=== PATIENT | female | born 1995 | race Two or more races ===

== ENCOUNTER 2017-10-21 17:47 | Emergency (ER) | payer SELFPAY ==
[2017-10-21 18:27] VITALS: BP 107/57
--- NOTE | 2017-10-21 20:18 | RADIOLOGY REPORT (SQ) ---
EXAM DESCRIPTION: TOE RIGHT COMPLETED DATE/TIME: 10/21/2017 8:07 pm REASON FOR STUDY: toe injury, gate fell on COMPARISON: None. NUMBER OF VIEWS: Three views. TECHNIQUE: AP, lateral, and oblique images acquired of the right first toe. LIMITATIONS: None. FINDINGS: MINERALIZATION: Normal. BONES: Nondisplaced transverse fracture of the distal phalanx. JOINTS: No effusions. SOFT TISSUES: No soft tissue swelling. No foreign body. OTHER: No other significant finding. IMPRESSION: NONDISPLACED TRANSVERSE FRACTURE OF THE DISTAL PHALANX OF THE 1ST TOE. COMMENT: SITE OF TRAUMA/COMPLAINT MARKED/STAMP COMPLETED: YES. TECHNICAL DOCUMENTATION: JOB ID: [id number] [employer]- All Rights Reserved Reading location - IP/workstation name: [email or web address]
[2017-10-21] MEDS ORDERED: LIDOCAINE 1% INJ-PF (10 MG/ML) 30 ML SDV INJ ONE (20:27)
--- NOTE | 2017-10-21 23:13 | ER Document Report ---
ED Extremity Problem, Lower - General Chief Complaint: Toe Injury Stated Complaint: TOE INJURY Time Seen by Provider: 10/21/17 19:21 Mode of Arrival: Ambulatory Information source: Patient Notes: Patient is a 22-year-old female who presents to the ER today for injury to the right great toe after out of our last night having heavy gait fall on it. Patient states that she was drunk so she went home and went to sleep. This happened approximately 3 AM last night. She admits to pain to the toe, denies any numbness or tingling. TRAVEL OUTSIDE OF THE [place] IN LAST 30 DAYS: No Past Medical History - General Information source: Patient - Social History Smoking Status: Unknown if Ever Smoked Family History: Reviewed & Not Pertinent Patient has suicidal ideation: No Patient has homicidal ideation: No Renal/ Medical History: Denies: Hx Peritoneal Dialysis Review of Systems - Review of Systems Constitutional: No symptoms reported EENT: No symptoms reported Cardiovascular: No symptoms reported Respiratory: No symptoms reported Gastrointestinal: No symptoms reported Genitourinary: No symptoms reported Female Genitourinary: No symptoms reported Musculoskeletal: See HPI Skin: See HPI Hematologic/Lymphatic: No symptoms reported Neurological/Psychological: No symptoms reported Physical Exam - Vital signs Vitals: Temp Pulse Resp BP Pulse Ox 98.8 F 73 18 107/57 L 100 10/21/17 18:26 10/21/17 18:26 10/21/17 18:26 10/21/17 18:26 10/21/17 18:26 - Notes Notes: PHYSICAL EXAMINATION: GENERAL: Well-appearing and in no acute distress. HEAD: Atraumatic, normocephalic. EYES: Pupils equal round and reactive to light, extraocular movements intact, sclera anicteric, conjunctiva are normal. NECK: Normal range of motion, supple without lymphadenopathy LUNGS: CTAB and equal. No wheezes rales or rhonchi. HEART: Regular rate and rhythm without murmurs EXTREMITIES: Normal range of motion, no pitting edema. No cyanosis. NEUROLOGICAL: Cranial nerves grossly intact. Normal sensory/motor exams. PSYCH: Normal mood, normal affect. SKIN: Warm, Dry, normal turgor, laceration to the base of the right great toe, nail completely out of nailbed, skin around base of toe missing, partial nail missing, no active bleeding Course - Re-evaluation Re-evalutation: 10/21/17 23:12 Patient has a distal fracture of the phalanx, nondisplaced, it is an open fracture, nailbed was attempted to be sutured down, however attempts failed as there is really no scanned but the nailbed back under. I did have my attending come take a look at it who advises Dermabond at this time and follow-up with podiatry. One suture was placed. - Vital Signs Vital signs: Temp Pulse Resp BP Pulse Ox 98.8 F 73 18 107/57 L 100 10/21/17 18:26 10/21/17 18:26 10/21/17 18:26 10/21/17 18:26 10/21/17 18:26 Procedures - Additional Procedures digital block Time performed: 22:00 - Lidocaine 1% without epi, 5 cc used to digitally block great toe of the right foot Discharge - Discharge Clinical Impression: Nailbed laceration, toe Qualifiers: Encounter type: initial encounter Qualified Code(s): S91.219A - Laceration without foreign body of unspecified toe(s) with damage to nail, initial encounter Toe fracture, right Qualifiers: Encounter type: initial encounter Toe: great toe Fracture type: open Phalanx: distal Fracture alignment: nondisplaced Qualified Code(s): S92.424B - Nondisplaced fracture of distal phalanx of right great toe, initial encounter for open fracture Condition: Stable Disposition: HOME, SELF-CARE Additional Instructions: Please follow-up with podiatry. Return immediately for any new or worsening symptoms. Follow up with primary care provider, call tomorrow to make followup appointment. Prescriptions: Amox Tr/Potassium Clavulanate [Augmentin 875-125 Tablet] 1 tab PO BID 10 Days tablet Hydrocodone/Acetaminophen [[place] 5-325 mg Tablet] 1 tab PO Q4 PRN #15 tablet PRN Reason: Forms: Return to Work Referrals: EVELYN BLOOM DPM [ACTIVE STAFF] - Follow up as needed OMAR GRIFFITHS MD [ACTIVE STAFF] - Follow up as needed
[2017-10-21] MEDS ORDERED: HYDROCODONE/ACETAMINOPHEN 5-325 MG TABLET PO ONE (23:15)
== END 2017-10-21 23:25 | disposition home or self-care (01) ==
LOC: ER 17:47
DX: S92.424B Nondisplaced fracture of distal phalanx of right great toe, initial encounter for open fracture (principal); W20.8XXA Other cause of strike by thrown, projected or falling object, initial encounter
CPT/HCPCS: 99283; 73660; 12001; J3490